=== PATIENT | male | born 1960 | race Caucasian/White ===

== ENCOUNTER → 2019-09-20 | Outpatient (CLI) | payer BC, SELFPAY ==
[2019-09-20 11:36] VITALS: BMI 33.5
== END | disposition home or self-care (01) ==
LOC: COVBMS 15:35 → LABSPEC 10-01 08:20
PROVIDERS: Physician Assistant
DX: Z20.828 Contact with and (suspected) exposure to other viral communicable diseases (principal)
CPT/HCPCS: 87635; U0003

== ENCOUNTER 2021-06-18 17:00 | Outpatient (CLI) | payer BC, SELFPAY ==
--- NOTE | 2021-06-18 17:03 | MRI_ITS ---
We are attempting to reach an attending provider to discuss findings. An addendum with communication details will be sent when the communication is complete. STUDY: MRI BRAIN WITHOUT CONTRAST REASON FOR EXAM: Male, 61 years old. Rule out stroke TECHNIQUE: Standardized multiplanar fat and water weighted pulse sequences were obtained. MRI examination brain obtained with standard protocol including multiplanar multi echo noncontrast imaging. COMPARISON: None. FINDINGS: HEMISPHERES, CEREBELLUM AND BRAINSTEM: 1. The cerebral parenchyma, ventricular system and gyral pattern have normal configuration. 2. Current examination however is remarkable for diffusely increased T2 and FLAIR signal within the LEFT lenticular nucleus, extending into the LEFT insula, mild extension along the anteromedial aspect of the LEFT temporal pole. There is thickening of the cortical surface of the insula, there is mass effect, with mild effacement of the LEFT lateral ventricle, and midline shift to the RIGHT at the level of the foramina of Mcdonald estimated at approximately 5 to 6 mm. 3. There is mild extension of the signal abnormality into the adams radiata with a small cystic area in the midportion of the adams radiata. There also appears to be subtle extension of abnormal signal into the posterior lateral thalamus on the LEFT. 4. No areas of fluid restriction noted on DWI. There is mild ADC restriction corresponding to the infiltrating T2 abnormality. 5. No evidence of hemorrhage. 6. Minimal chronic microvascular deep white matter changes are present. 7. The cerebellum, brainstem, basilar and suprasellar cisterns have normal appearance. No Chiari malformation. PITUITARY: Infundibulum and pituitary have normal configuration. Midline structures appear normal. CSF SPACES: Appropriate for age. No hydrocephalus. Basal cisterns are patent. VESSELS: 1. There are normal flow voids noted in the great vessels at the skull base ORBITS AND PARANASAL SINUSES: 1. Both globes, extraocular muscles, optic nerves and retrobulbar fat appear unremarkable. 2. Polypoid mucosal thickening/mucous retention cyst in the LEFT maxillary antrum. Remaining paranasal sinuses are clear. BONY ELEMENTS: Bony elements of the cranial vault, facial skeleton and skull base have normal appearance. SCALP AND SOFT TISSUES: Normal appearance of the soft tissues of the scalp and the visualized face OTHER: None MRI/Brain without Contrast IMPRESSION: 1. Marked abnormality of the LEFT lenticular nucleus and insular cortex, with extension into the adams radiata, posterior lateral thalamus, and the anteromedial LEFT temporal lobe. There is cortical thickening, diffuse increased fluid signal on T2 and particularly FLAIR imaging without diffusion restriction on DWI examination. Findings are consistent with a infiltrating cellular process, and a primary [employer] neoplasm is a consideration. There is a small cystic area of this lesion in the LEFT adams radiata. Consider follow-up imaging with contrast for further characterization. 2. Mild rightward midline shift of 5 to 6 mm. 3. No evidence of acute territorial infarct or intraparenchymal hemorrhages. 4. Sinus disease. Electronically Signed: Dong Sutherland MD at 18:50 EDT ,
== END 2021-06-18 23:59 | disposition home or self-care (01) ==
PROVIDERS: PCP Family Medicine; Visit Provider Orthopaedic Surgery
DX: I63.9 Cerebral infarction, unspecified (principal)
CPT/HCPCS: 70551

== ENCOUNTER 2021-06-18 19:23 | Emergency (ER) | payer BC, SELFPAY ==
[2021-06-18 19:24] VITALS: BP 135/94; PULSE 104; RESP 18; TEMP 36.5; O2SAT 98; BMI 34.4
[2021-06-18 19:32] VITALS: BMI 34.7
[2021-06-18 19:46] LABS: Bedside Glucose 110 mg/dL (74-106)
--- NOTE | 2021-06-18 20:19 | EDS_ITS ---
HPI History of Present Illness Chief Complaint: Neuro S/Sx Informant: patient and spouse/S.O. Narrative Narrative: Patient was sent down from MRI due to finding of a new intracranial mass. This patient was referred to orthopedics about a week and a half ago. At that time he had some sensory changes of his right upper extremity. MRI of the head was ordered as it was not thought that this was likely due to his previous cervical fusion done about 6 years ago. The MRI showed a finding consistent with infiltrating cellular process and primary PORTABLE TRACKMAN neoplasm is a consideration. There is a rightward shift of 5 to 6 mm. For this reason he was sent down here. By history, patient actually has some symptoms going back almost 3 years. He had some sensory changes and right foot drop for 3 years. However this markedly increased in April. 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 It made him have more difficulty walking. He has to think about his right leg and lifted up to walk. But he has no problem with steps. It seems mostly to be dorsiflexion of the foot that causes him problems. However, his right upper extremity symptoms only started about 3 weeks ago. It started with temperature changes. Now he has proprioception loss. He also has some weakness. He has discoordination. These are more rapidly progressive. He does not have headache nausea vomiting. He does not have fevers or chills. There is not been weight loss. No visual changes. No facial changes or speech changes. Nothing specifically makes his symptoms better or worse. PFSH PFSH Home Medications calcium carbonate 600 mg-vitamin D3 12.5 mcg (500 unit) capsule cap PO 06/01/21 [History Last Taken Unknown] lisinopril 10 mg tablet tablet PO 06/01/21 [History Last Taken Unknown] Allergy/AdvReac Type Severity Reaction Status Date / Time No Known Allergies Allergy Unverified 09/20/19 11:37 Family History Mother Hypertension Grandfather CVA (cerebral vascular accident) Surgical History Hx of fusion of cervical spine Social History Smoking Status: Never smoker alcohol intake: never ROS ROS ED Constitutional Constitutional ED: Denies chills or fever(s) Eyes Eyes: Denies blurry vision, change in vision or diplopia ENT ENT ED: Denies rhinorrhea Cardiovascular Cardiovascular: Denies chest pain or palpitations Respiratory/Chest Respiratory/Chest: Denies dyspnea Gastrointestinal Gastrointestinal: Denies nausea or vomiting Genitourinary Genitourinary ED: Denies dysuria or urinary frequency Musculoskeletal Musculoskeletal: Reports other Details: Patient has had cervical fusion. But he is not having significant neck pain. ; Denies arthralgias, back pain, myalgias or neck pain Integumentary Denies rash Neurologic Neurologic: Reports paresthesias, weakness and other Details: See history of present illness ; Denies headache(s) Psychiatric Psychiatric: Denies depression Endocrine Endocrinology: Denies polydipsia or polyuria Allergic/Immunologic Allergic/Immunologic ED: Denies urticaria EXAM Physical Exam Const Vital Signs: 06/18/21 19:24 06/18/21 20:24 06/18/21 21:17 Temperature 97.7 F L Temperature Source Temporal Pulse Rate 104 H 97 84 Respiratory Rate 18 15 21 H Blood Pressure 135/94 H 146/99 H 133/86 H Blood Pressure Mean 107 114 101 Pulse Ox 98 98 97 Oxygen Delivery Method Room Air Room Air Room Air Positive well nourished and well developed General Appearance ED: well developed and NAD; Negative for cyanotic or diaphoretic HEENT Reports moist mucous membranes HEENT Narrative: No facial droop or weakness noted. Eyes PERRL and EOMs intact bilaterally Neck no lymphadenopathy Neck Narrative: Prior anterior cervical fusion Chest Wall inspection of chest normal Resp normal respiratory effort and clear to auscultation bilaterally Cardio regular rate and regular rhythm GI normal to inspection, nondistended, normoactive bowel sounds and non-tender Palpation: soft Back/Spine no CVA tenderness Extremity normal to inspection General Extremety ED: Negative for edema or tenderness General Extremity: Negative for edema Neuro oriented x3 Neuro Narrative: Patient does have slight foot drop on the right. He is able to walk but he has to pull his leg up significantly high. He has some mild discoordination. But he can walk independently. He can move his right hand but it is also discoordinated. He has decreased sensation throughout the hand but does have some still remaining in the right thumb area. He has functional skills tutor bicep and tricep and shoulder strength but it is reduced from his left. Sensation is very poor diffusely in the right extremity until you get to the area of the shoulder and it starts to come back. Sensorium / Orientation: alert Psych mental status grossly normal Skin no rashes or lesions noted and no wounds MDM MDM MDM Narrative Medical decision making narrative: We did some basic lab work. Really no marked abnormalities in LFTs, electrolytes or CBC. Minimal elevations of chloride and glucose only. I did review the MRI results that show concerning findings for infiltrative process that even could be a neoplasm. With his progression of symptoms rapidly over the last few weeks and a 5 to 6 mm shift I think he does need to be seen acutely. I discussed case with Dr. Hollis on neurosurgery up at [facility] who will accept him in transfer. They are tight on beds but he said they should have something available for him relatively soon. We are waiting for that bed assignment at this time. Lab Data Attestation: I reviewed the patient's lab results. Labs: Laboratory Results - last 24 hr 06/18/21 06/18/21 06/18/21 19:38 20:30 20:30 WBC 8.5 RBC 4.94 Hgb 14.6 Hct 41.6 MCV 84.2 MCH 29.6 MCHC 35.1 RDW Std Deviation 38.5 RDW Coeff of Antonia 12.6 Plt Count 229 MPV 9.7 Immature Gran % (Auto) 0.400 Neut % (Auto) 75.3 H Lymph % (Auto) 16.3 L [place] % (Auto) 6.5 Eos % (Auto) 1.1 Baso % (Auto) 0.4 Absolute Neuts (auto) 6.4 Absolute Lymphs (auto) 1.38 Nucleated RBC % 0 Sodium 137 Potassium 4.9 Chloride 109 H Carbon Dioxide 25.0 Anion Gap 3 L BUN 17 Creatinine 1.20 Estim Creat Clear Calc 65.90 Est GFR (MDRD) Af Amer 79 Est GFR (MDRD) Non-Af 65 BUN/Creatinine Ratio 14.2 Glucose 110 H Calcium 9.2 Total Bilirubin 0.60 AST 26 ALT 26 Alkaline Phosphatase 64 Total Protein 7.1 Albumin 4.0 Globulin 3.1 Albumin/Globulin Ratio 1.3 POC Glucose 110 H Discharge Plan Triage Chief Complaint: Neuro S/Sx ED Provider: El Thomson Dx/Rx/DC Orders Clinical Impression: Intracranial mass, Acute right-sided weakness Prescriptions: No Action lisinopril 10 mg tablet PO RF: 0 calcium carbonate-vitamin D3 [Calcium 600 with Vitamin D3] 600 mg-12.5 mcg (500 unit) capsule PO RF: 0 Primary Care Provider: Raymundo Badillo Referrals: Raymundo Badillo MD [Primary Care Provider] - Disposition Disposition: Acute Care Hospital Discharge Location: [facility]
[2021-06-18 20:24] VITALS: BP 146/99; PULSE 97; RESP 15; O2SAT 98
[2021-06-18 20:43] LABS: Absolute Lymphocyte Count 1.38 X10^3/uL (0.83-4.51); Absolute Neutrophil Count 6.4 X10^3/uL (2.0-7.7); Basophil# 0.03 X10^3/uL; Basophil% 0.4 % (0-1); Eosinophil# 0.09 X10^3/uL; Eosinophils% 1.1 % (0-5); Hematocrit 41.6 % (40-54); Hemoglobin 14.6 g/dL (13.0-16.5); Lymphocyte # 1.38 X10^3/ul (0.83-4.51); Lymphocyte % 16.3 % (19-41); Mean Corp Hgb Conc 35.1 g/dL (32-36); Mean Corpuscular Hgb 29.6 pg (27.0-32.0); Mean Corpuscular Volume 84.2 fL (80-94); Mean Platelet Vol. 9.7 fl (6.2-12.0); Monocyte# 0.55 X10^3/uL; Monocyte% 6.5 % (0-10); NRBC Flagged by Analyzer 0 % (0-5); Neutrophil # 6.41 X10^3/uL (2.7-7.7); Neutrophil % 75.3 % (47-70); Platelet Count 229 K/mm3 (150-450); RBC Distribution Width CV 12.6 % (11.6-14.6); RBC Distribution Width SD 38.5 fl (35.1-43.9); Red Blood Count 4.94 M/mm3 (4.6-6.2); White Blood Count 8.5 K/mm3 (4.4-11.0)
[2021-06-18 21:02] LABS: ALB/GLOB Ratio 1.3 RATIO (0.9-2.4); AST(SGOT) 26 U/L (15-37); Alanine Aminotransfer ALT/SGPT 26 U/L (16-61); Alkaline Phosphatase 64 U/L (45-117); Anion Gap 3 (5-15); BUN 17 mg/dL (7-18); BUN/Creat Ratio 14.2 RATIO (10-20); Calcium,Total 9.2 mg/dL (8.5-10.1); Chloride 109 mmol/L (98-107); EST Glomerular Filtration Rate 65 mL/min (>60); Est Glom Filt Rate - Afr Amer 79 mL/min (>60); Globulin 3.1 g/dL (2.2-4.2); Glucose 110 mg/dL (74-106); Potassium 4.9 mmol/L (3.5-5.1); Protein, Total 7.1 g/dL (6.4-8.2); Sodium Level 137 mmol/L (136-145)
[2021-06-18 21:17] VITALS: BP 133/86; PULSE 84; RESP 21; O2SAT 97
[2021-06-18 22:46] VITALS: BP 137/93; RESP 18; O2SAT 95
[2021-06-18 23:09] VITALS: BP 125/86; PULSE 92; RESP 23; O2SAT 98
[2021-06-19] VITALS (13 sets, daily range): BP systolic 110–167; BP diastolic 73–104; PULSE 69–107; RESP 16–25; O2SAT 93–99
--- NOTE | 2021-06-19 10:10 | CM.ED ---
ER RNCM Note: According to patient insurance [employer], in network tertiary facilities for HLOC transfer are as follows: [facility], [facility], [facility], [facility], [facility], [facility], [facility], . Aditi Huber, RNCM
--- NOTE | 2021-06-19 10:26 | ED.RN ---
CALLED TO CHECK ON A BED ASSIGNMENT AND THEY DON'T HAVE A ETA ON A BED
--- NOTE | 2021-06-19 10:58 | ED.RN ---
THIS NURSE CONTACT [facility] FOR TRANSFER PER FAMILY REQUEST
[2021-06-19] MEDS: Lisinopril 10 MG Tablet PO (11:11)
[2021-06-19] MEDS: dexAMETHasone 4 MG Tablet PO (13:12)
--- NOTE | 2021-06-19 14:16 | ED.RN ---
CALLED PHYSICIANS FOR A RIDE THIS PATIENT, THE ETA IS 3 HOURS I ASKED THEM TO OUT SOURCE SINCE SINCE HE IS A TERRY SHIFT.
--- NOTE | 2021-06-19 14:22 | ED.RN ---
Patient gave verbal consent to be transferred to [facility]. Patient currently calling his to notify her of transfer.
--- NOTE | 2021-06-19 16:01 | ED.RN ---
This RN has called [facility] ED transfer center for report. Stated they do not need report. Everything has been sent to triage nurse and she has no further questions at this time.
--- NOTE | 2021-06-19 17:36 | ED.RN ---
CALLED PHYSICIANS AND THEY HAVE CHANGED THE ETA AGAIN TO ANOTHER 2-3 HOURS FOR THIS PATIENT. THEY DONT HAVE A MEDIC CURRENTLY. I EXPLAINED I HAVE MULTIPLE CRITICAL PEOPLE
--- NOTE | 2021-06-19 17:44 | ED.RN ---
CALLED [facility] AND THEY WASNT ABLE TO HELP US WITH THIS PERSON.
== END 2021-06-19 19:30 | disposition short-term general hospital (02) ==
PROVIDERS: Emergency Provider Emergency Medicine; PCP Family Medicine; Visit Provider Emergency Medicine
DX: R22.0 Localized swelling, mass and lump, head (principal); R53.1 Weakness; Z79.899 Other long term (current) drug therapy
CPT/HCPCS: 80053; 82962; 85025; 99283; A4216

== ENCOUNTER 2021-08-19 10:59 | Outpatient (RCR) | payer BC, SELFPAY ==
[2021-08-19 11:14] LABS: Absolute Lymphocyte Count 0.64 X10^3/uL (0.83-4.51); Absolute Neutrophil Count 11.3 X10^3/uL (2.0-7.7); Basophil# 0.04 X10^3/uL; Basophil% 0.3 % (0-1); Eosinophil# 0.08 X10^3/uL; Eosinophils% 0.6 % (0-5); Hematocrit 44.9 % (40-54); Hemoglobin 15.2 g/dL (13.0-16.5); Lymphocyte # 0.64 X10^3/ul (0.83-4.51); Mean Corp Hgb Conc 33.9 g/dL (32-36); Mean Corpuscular Volume 88.7 fL (80-94); Mean Platelet Vol. 9.2 fl (6.2-12.0); Monocyte# 0.52 X10^3/uL; Monocyte% 4.1 % (0-10); NRBC Flagged by Analyzer 0 % (0-5); Neutrophil # 11.28 X10^3/uL (2.7-7.7); Neutrophil % 88.8 % (47-70); Platelet Count 202 K/mm3 (150-450); RBC Distribution Width CV 14.2 % (11.6-14.6); RBC Distribution Width SD 45.9 fl (35.1-43.9); Red Blood Count 5.06 M/mm3 (4.6-6.2); White Blood Count 12.7 K/mm3 (4.4-11.0)
[2021-08-19 11:30] LABS: AST(SGOT) 20 U/L (15-37); Alanine Aminotransfer ALT/SGPT 34 U/L (16-61); Albumin, Serum 3.5 g/dL (3.2-5.0); Alkaline Phosphatase 53 U/L (45-117); Anion Gap 8 (5-15); BUN 20 mg/dL (7-18); Calcium,Total 9.5 mg/dL (8.5-10.1); Chloride 104 mmol/L (98-107); Creatinine, Serum 1.11 mg/dL (0.70-1.30); EST Glomerular Filtration Rate 71 mL/min (>60); Est Glom Filt Rate - Afr Amer 86 mL/min (>60); Estimated Creatinine Clearance 71.25 ml/min; Globulin 3.5 g/dL (2.2-4.2); Glucose 163 mg/dL (74-106); Potassium 3.8 mmol/L (3.5-5.1); Sodium Level 137 mmol/L (136-145)
== END 2021-09-01 23:59 ==
LOC: PAVLAB 10:59
PROVIDERS: Student in an Organized Health Care Education/Training Program; PCP Family Medicine
DX: C71.9 Malignant neoplasm of brain, unspecified (principal)
CPT/HCPCS: 36415; 80053; 85025

== ENCOUNTER 2021-11-06 14:00 | Outpatient (RCR) | payer BC, SELFPAY ==
--- NOTE | 2021-06-26 16:55 | HP.SP.AD_ITS ---
History - History Date of Eval: 06/26/21 Medical Diagnosis (from RX): Brain Mass (G93.89); [facility] with Post- Operative Status (Z98.890) Date of Onset of Diagnosis: 06/18/21 Previous speech therapy: No Other Relevant Medical History/Diagnoses/Surgery: EVE ADAN is a 61-year-old male who presents to [facility] in [place] on 06/26/2021, s/p brain biopsy at the [facility] in [place]. Pt recently dx with a brain mass at [facility] following a visit d/t right arm/leg weakness and minimal feeling. Pt?s hx remarkable for cervical fusion in March 2017 ([facility], [place] of [place]). Pt presenting with stroke-like symptoms on 06/01/2021, which warranted an MRI on 06/18/21. MRI was remarkable for a brain mass located in the LEFT lenticular nucleus extending into LEFT insula. Pt transferred to the [facility] for brain biopsy on 06/23/21. He did work at an [employer], so he lifts a lot of heavy items. 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 Pt and Pt's endorse intermittent slurred speech with unclear determination if it is phoneme specific. Will assess further. Objective Dysarthira/Motor - Speech Intelligibility Phonemes: Mild Single Words: Mild Phrases: Mild Sentences: Mild Paragraphs: Mild Conversation: Mild - Volume Volume: Mild - Awareness/Strategy Use Aware of motor speech impairment, unable to use strategies to improve intelligibility: Yes - Comments Diadochokinetic Rate -: Pt produced /puhpuhpuh/, /tuhtuhtuh/, and /kuhkuhkuh/ w/slow rate and mild incoordination of /k/ phoneme with intermittent evidence of nasal emission. Pt completed AMR w/ significantly slow rate, poor coordination, intermittent nasal emission. Other Impressions - Comments Quick Aphasia Battery -: Quick Aphasia Battery (QAB) completed to assess mixed receptive and expressive aphasia. The test assesses Pt's skills in verbal expression, repetition, auditory comprehension, and fluency. The severity rating for the QAB is as follows: 0.00-4.99 Severe; 5.00-7.49 Moderate; 7.50-8.89 Mild; 8.90-10.00 WNL. Results for Eve are as follows: Word comprehension, 10.00; Sentence comprehension, 10.00; Word finding, 8.00; Grammatical construction, 6.25; Speech motor programming, 10.00; Repetition, 9.58; Reading, 9.58; QAB overall = 8.66 --------- The pt presents with mild expressive aphasia characterized by functional deficits in word finding and grammatical construction at the conversation level, conversational fluency. Pt additionally presents with mild ataxic dysarthria, which negatively impacts his ability to utilize articulatory musculature to accurately produce speech sounds in connected speech. During conversation, Pt typically utilizing vague words, shorter MLU, abandoned utterances, and word-finding pauses. Pt effective in showing some independent use of aphasia-word finding strategies. Plan - Plan Plan: Will recommend Pt for weekly outpatient speech therapy intervention address mild expressive aphasia and ataxic dysarthria. Pt would benefit from oral motor exercises, verbal and visual modeling, verbal/visual and tactile cuing, repeated practice, speech intelligibility strategies, circumlocution training, and immediate feedback to improve articulation and coordination. Without skilled intervention Pt is at risk for difficulty communicating basic, medical, emergent, social wants & needs, and interacting with family/friends at home, during social interactions, and at doctor's appointments. - Recommendations Treatment Warranted: Yes - Frequency Frequency: 1x/Week Duration: TBD - Prognosis Prognosis: Good - Goals that are Established: Determination:: Goals will be added/modified as deemed necessary and appropriate. Therapy will be discontinued when results of re-evaluation indicate therapy is no longer needed or lack of progress has been documented. - Goal #1-5 Goal #1: The pt will demonstrate and utilize speech intelligibility techniques (increased loudness, reduced rate of speech, exaggerated articulation, increased jaw ROM) 90% of the time during conversational speech independently across 3 measured sessions to facilitate increased expressive communication abilities in the home and social environments. Goal #2: Pt will complete basic to mod complex confrontation, convergent, and divergent naming tasks with 90% acc independently across 3 measured opportunities to improve word retrieval. Goal #3: The Pt will demonstrate use of aphasia-wording finding strategies at least 90% of the time during known and unknown topics of conversational speech independently across 3 measured opportunities to facilitate increased expressive communication abilities in the home and social environments. Education - Patient has Indicated that the Following Identified Educational Needs: None The Patient has indicated that they have no educational or learning abilities that may effect their care.: Yes - Patient Instruction Patient Education: Diagnosis, Treatment Plan, Goals, Home Exercise Program Person Taught: Patient, Significant Other Teaching Method: Discussion, Demonstration, Handout Response to teaching: Return demonstration, Verbalize understanding
--- NOTE | 2021-06-26 17:07 | HP.SP.AD_ITS ---
History - History Date of Eval: 06/26/21 Medical Diagnosis (from RX): Brain Mass (G93.89); Robson Hole Surgery with Post- Operative Status (Z98.890) Date of Onset of Diagnosis: 06/18/21 Previous speech therapy: No Other Relevant Medical History/Diagnoses/Surgery: EVE ADAN is a 61-year-old male who presents to [facility] in [place] on 06/26/2021, s/p brain biopsy at the [facility] in [place]. Pt recently dx with a brain mass at [facility] following a visit d/t right arm/leg weakness and minimal feeling. Pt?s hx remarkable for cervical fusion in March 2017 ([facility], [place]). Pt presenting with stroke-like symptoms on 06/01/2021, which warranted an MRI on 06/18/21. MRI was remarkable for a brain mass located in the LEFT lenticular nucleus extending into LEFT insula. Pt transferred to the [facility] for brain biopsy on 06/23/21. He did work at an [employer], so he lifts a lot of heavy items. 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 Provided direct education to monitor sensation as loss of sensation may lead to pocketing of food on the right side. Pt denies difficulty with swallowing at this time. Asked him to monitor and we will address in therapy should difficulties arise. - Respiratory Status Respiratory Status: Room Air Subjective Dysarthria/Motor - Subjective Subjective: Pt's overall speech characteristics along with site of brain mass are consistent with ataxic dysarthria. Pt and Pt's endorse intermittent slurred speech with unclear determination if it is phoneme specific. Will assess further. Objective Dysarthira/Motor - Speech Intelligibility Phonemes: Mild Single Words: Mild Phrases: Mild Sentences: Mild Paragraphs: Mild Conversation: Mild - Volume Volume: Mild - Awareness/Strategy Use Aware of motor speech impairment, unable to use strategies to improve intelligibility: Yes - Comments Diadochokinetic Rate -: Pt produced /puhpuhpuh/, /tuhtuhtuh/, and /kuhkuhkuh/ w/slow rate and mild incoordination of /k/ phoneme with intermittent evidence of nasal emission. Pt completed AMR w/ significantly slow rate, poor coordination, intermittent nasal emission. Other Impressions - Comments Quick Aphasia Battery -: Quick Aphasia Battery (QAB) completed to assess mixed receptive and expressive aphasia. The test assesses Pt's skills in verbal expression, repetition, auditory comprehension, and fluency. The severity rating for the QAB is as follows: 0.00-4.99 Severe; 5.00-7.49 Moderate; 7.50-8.89 Mild; 8.90-10.00 WNL. Results for Eve are as follows: Word comprehension, 10.00; Sentence comprehension, 10.00; Word finding, 8.00; Grammatical construction, 6.25; Speech motor programming, 10.00; Repetition, 9.58; Reading, 9.58; QAB overall = 8.66 --------- The pt presents with mild expressive aphasia characterized by functional deficits in word finding and grammatical construction at the conversation level, conversational fluency. Pt additionally presents with mild ataxic dysarthria, which negatively impacts his ability to utilize articulatory musculature to accurately produce speech sounds in connected speech. During conversation, Pt typically utilizing vague words, shorter MLU, abandoned utterances, and word-finding pauses. Pt effective in showing some independent use of aphasia-word finding strategies. Naming -: Pt completed convergent naming task via naming category name following 3 verbally presented words with 80% acc independently and benefited from min verbal cue via carrier phrase to improve acc to 100%. Pt completed concrete divergent naming task via naming 8 animals in a 60 second time frame with Pt making comments like oh all the zoo animals and all the animals. Pt completed abstract divergent naming task with initial letter restriction (M) via naming 2 items within a 60 second time frame. WNL for a combined concrete/abstract divergent naming task would be a total of 20-25+ items total. Pt identifying a total of 10. Plan - Plan Plan: Will recommend Pt for weekly outpatient speech therapy intervention address mild expressive aphasia and ataxic dysarthria. Pt would benefit from oral motor exercises, verbal and visual modeling, verbal/visual and tactile cuing, repeated practice, speech intelligibility strategies, circumlocution training, and immediate feedback to improve articulation and coordination. Without skilled intervention Pt is at risk for difficulty communicating basic, medical, emergent, social wants & needs, and interacting with family/friends at home, during social interactions, and at doctor's appointments. - Recommendations Treatment Warranted: Yes - Frequency Frequency: 1x/Week Duration: TBD - Prognosis Prognosis: Good - Goals that are Established: Determination:: Goals will be added/modified as deemed necessary and appropriate. Therapy will be discontinued when results of re-evaluation indicate therapy is no longer needed or lack of progress has been documented. - Goal #1-5 Goal #1: The pt will demonstrate and utilize speech intelligibility techniques (increased loudness, reduced rate of speech, exaggerated articulation, increased jaw ROM) 90% of the time during conversational speech independently across 3 measured sessions to facilitate increased expressive communication abilities in the home and social environments. Goal #2: Pt will complete basic to mod complex confrontation, convergent, and divergent naming tasks with 90% acc independently across 3 measured opportunities to improve word retrieval. Goal #3: The Pt will demonstrate use of aphasia-wording finding strategies at least 90% of the time during known and unknown topics of conversational speech independently across 3 measured opportunities to facilitate increased expressive communication abilities in the home and social environments. Education - Patient has Indicated that the Following Identified Educational Needs: None The Patient has indicated that they have no educational or learning abilities that may effect their care.: Yes - Patient Instruction Patient Education: Diagnosis, Treatment Plan, Goals, Home Exercise Program Other Education: Provided direct education re: aphasia word finding strategies as well as examples and a handout to Pt and Pt's . Also provided Pt with category name examples for Pt to practice divergent/convergent naming tasks at home. Person Taught: Patient, Significant Other Teaching Method: Discussion, Demonstration, Handout Response to teaching: Return demonstration, Verbalize understanding
--- NOTE | 2021-07-07 07:45 | HP.OTEVAL_ITS ---
Patient's Visit Information EVE ADAN is a 61 year old M, referred to Occupational Therapy by RADHA CURRY, with a diagnosis of Brain Mass; Tita Hole Surgery with Post-Operative Status. Date of Evaluation: 07/06/21 Occupational Therapist: Edilia Heard, ROSEANNER/Sandra, CHT - Subjective Pt. is a 61 year old male who had a biopsy of brain lesion by intracranial tita hole on 06-22-21. His Rowena brought pt. to evaluation. Pt. in wc and has his cane. Pt. stating he does not have pain at this time. Per pt. report he developed foot drop approximately 3 years ago. 2 months ago (~early May) he developed RUE weakness. Pt. is having difficulty with self-care and IADL tasks. Per pt. has an infection from biopsy. He has inoperable brain tumor. He will be doing radiation for 6 weeks, and 7 days of chemo. He has an infection and is going to [place] on for 07-09-21 for tx. - ADLs Dressing: Overhead shirt, Coat Comments: verbalized understanding of bill dressing tech. Comments: requires Min/Mod A Comments: per cognitive deficits does not allow pt. in kitchen without supervisi Comments: pt. using L hand for daily tasks. Comments: Pt. currently completes sponge bathing as the bathroom on 1st floor has commode & sink. The bathroom with the shower is upstairs and pt. is unable to complete stairs at this time. Pt. states that in 2 months their rental contract is up and they could move. understands that a handicapped accessible home would be beneficial to pt. ADL status. is retired and able to assist with pt. ADL's and IADL's. is retired. 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 - ROM Shoulder: L WFL, R trace shoulder elevation Elbow: L WFL, R 85* while supported Forearm: L WFL, R active sup to 65*,pronation with gravity Wrist: L WFL, R 30* flexion, ulnar deviation 30*, radial deviation 2* CMC: L WFL R 8 MP: L WFL R 10 IP: L WFL, R 35 Opposition: L WFL, R thumb to 3rd digit. MP: R 1- 35*, 2- 40*, 3- 25*, 4-18* PIP: R 1-60*,2-73*, 3-76*, 4-75* ROM Comments: can make R fist with effort - Strength Shoulder: L 31.7 R 18 Elbow: L25.6 R 14.9 Dry Sand Molder: L-75# R 5# Lateral Pinch: L-25# R 5# Tripod Pinch: L-20# R-NT Tip-to-Tip Pinch: L-15# R-5# Strength Comments: used FIT mini for muscle testing. Per pt. report he started on steroids on 07-03-21, feels like there is a bit more strength in R hand R Leg - Edema Other: minimal edema in R hand compared to L hand - Sensation Thumb: L 3.84 Index: L3.61 Middle: L-3.22 Ring: L-2.83 Little: L2.83 Stereognosis: Abnormal - Right, Normal - Left Kinesthesia: Abnormal - Right, Normal - Left Proprioception: Abnormal - Right, Normal - Left Sensation Comments: Used [place]-Leobardo monofilament assessment. Pt. was unable for feel sensation at 3.84 on R hand/fingers. At risk for temperature injuries. - Cognitive Skills Cognitive Comments: per report pt. has difficulty with word finding - Attention Attention: Normal - Transfers Transfers: sit to stand using L hand at CGA. stand to sit, pt. plops, even with vc's to reach back prior to sitting. - Upper Limb Functional Index ULFI Score: 20.5 - Quick DASH-Disab of Arm,Shoulder& Hand Quick DASH Score: 81.8175 - Goals Goal:: Pt. will improve precision aircraft structure assembler strength by 15# (from 5# to 20#) from for increasing independence with opening containers for meals by dc. Goal:: Pt. will increase RUE AROM from trace to 15 degree shoulder flexion to increase indep with UB dressing by dc. Goal:: Pt. to don pullover shirt at Mod I level by dc. Goal:: Pt. to verbalize awareness of sensation at level 3.22 on [place]-Leobardo monofilament assessment on R hand by dc. pt will demo understanding to utilize visual compensation around hot/cold or sharp objects by end of 3 rd session. Goal:: pt will demo understanding of using adaptive dressing pancho. to decrease need of assist by family ie, adaptive clothing, elastic pants etc. Goal:: Will provide family ed. on ergonomics for dressing, bathing, transfer to avoid injury to self or pt by d/c - Rehabilitation General Assessment: Pt?s hx: cervical fusion in March 2017 ([facility], out of [place]). Pt presenting with stroke-like symptoms on 06/01/2021, which warranted an MRI on 06/18/21. MRI was positive for a brain mass located in the LEFT lenticular nucleus extending into LEFT insula. Pt transferred to the [facility] for [facility] biopsy on 06/23/21. He has decreased RUE AROM, strength, and sensation. He requires assistance from for ADL's and dependent for IADL tasks. Pt. would benefit from skilled OT services 1-2x week for 6 weeks to improve RUE function for independence with ADL's. Therapy se beatty was directly supervised and doc. reviewed and approved by Edilia Heard OTR/L,CHT Rehabilitation Potential: Good - Anticipated Interventions A/AAROM/PROM, Strengthening, Fine Motor Coord/Luis, Neuro Reeducation, Sensory Stimulation, ADL Training, Caregiver Training, Home Program - Visit Plan Frequency: 1-2x /Week Duration: 6 Weeks TEXT: Thank you for the opportunity to evaluate your patient. For Medicare and Medicare HMO plans, please review the plan of care and approve it. It will need to be FAXED BACK to us at [phone] for Medicare purposes. Please let me know if there are questions or concerns regarding this plan of care. Physician Signature: Date:
--- NOTE | 2021-07-14 08:57 | HP.PTEVAL ---
Patient's Visit Information EVE ADAN is a 61 year old M referred to Physical Therapy by RADHA CURRY with a diagnosis of L sided brain mass. Date of Evaluation: 07/02/21 Physical Therapist: Wilmar Guillermo DPT - Visit Plan Frequency: 2-3x /Week Duration: 6 Weeks Plan: Start with general safety with mobility and walking. Use of AD bill vs quad cane, vs SPC. Work LE strengthening. Balance exercises. - Subjective Pt. is here today for his initial evaluation with diagnosis L sided brain mass. Pt. reports ~ 1 month ago he started having symptoms of loss of use of R foot then his R arm. He was treated initially with a pinched nerve, but then as things progressed he had a further work up. He had a biopsy while he was a the hospital, but is awaiting results. He is to follow up with them later this week. He reports minimal use of RUE, a little better in his R leg, but limited. He denies pain, but is just limited with use. 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 He has been off since his symptoms started. He is able to walk with a bill walker or cane at home. He is hopeful to increase his balance and strength in order to get back to working. - Objective POSTURE: Pt. has slight L lateral lean in stance. R arm dependent at side. Increased B anterior shoulders. PALPATION: No pain with palpation of any extremities. NEURO: normal DTR of L side. absent on R side both UE and LEs. ROM: Normal ROM of BLEs and B UEs. MMT: LLE: 5/5 throughout. RLE: ankle: DF 2-/5, PF 2-/5, knee: ext 3/5, flexion 4/5; hip: flexion 3/5, abd 3-/5, ext 3/5. GAIT: Pt. was able to ambulate without AD, but has exaggerated R hip flexion to make up for loss of DF, decreased L step length with increased lateral sway. Flexed posture throughout. STAIRS: Pt. able to negotiate 1 step with 1 HR without LOB. with Norma. - Balance/Special Test Scores Lower Extremity Functional Score: 18 TUG Test Time Seconds: 41 30 Second Chair Rise Test Seconds: 4 - Goals Goal 1:: LTG: Pt. to be I with HEP for BLE strengthening. Goal Time Frame: 4-6 Weeks Goal 2:: STG: Pt. to complete sit to stand and SPT CARROL with least restrictive device, SPC vs quad cane Goal Time Frame: 2 Weeks Goal 3:: LTG: Pt. to ambulate 150' with least restrictive device CARROL allowing for increased safety in home. Goal Time Frame: 4-6 Weeks Goal 4:: LTG: Pt. to complete 30 sec sit to stand rep test with 8 reps indicating increased functional strength. Goal Time Frame: 4-6 Weeks Goal 5:: LTG: Pt. to complete TUG with score of less than 30seconds indicating increased functional stability. Goal Time Frame: 4-6 Weeks - Rehabilitation Potential Physical Therapy Diagnosis: Pt. has signs and symptoms consistent with L sided brain mass with subsequent R sided weakness. His weakness is effecting all of his mobility in home and in community. He is using WC for longer distances and furniture walking in home. He would benefit from PT to work on general safety with mobility and maintaining current strength. He is awaiting results form brain biopsy which may change POC. Rehabilitation Potential: Fair - Anticipated Interventions Patient/Client Instruction: Educate patient on: Condition, Plan of Care, Risk Factors, Benefits of Fitness Program For the Purpose of:: To facilitate caregiver knowledge, To improve self management, To prevent re-injury, To improve ability to perform tasks related to life management Therapeutic Exercise to Include: Strength training, Power training, Balance training, Coordination, Flexibilty training, Gait and locomotor training, Dynamic Lumbar Stabilization For the Purpose of:: To increase ROM, To improve nutrient delivery to tissue, To increase oxygenation perfusion, To improve muscle performance and motor function, To improve ability to perform ADL's, To increase tolerance to activity/condition/position, To decrease level of supervision to perform tasks, To improve ability of physical actions for home/community/work/leisure, To improve gait and locomotor functions, To improve health of tissue, To increase flexibility/ROM Thank you for the opportunity to evaluate your patient. For Medicare and Medicare HMO plans, please review the plan of care and approve it. It will need to be FAXED BACK to us at [phone] for Medicare purposes. For Medicare only, by signing this I certify the plan of care. Please let me know if there are questions or concerns regarding this plan of care. Physician Signature: Date:
--- NOTE | 2021-08-12 07:19 | HP.PTREVAL ---
RADHA CURRY, It has been my pleasure to treat EVE ADAN over the last 8 visits for L sided brain mass. Please see the progress note below for an update on the physical therapy plan of care! Subjective: Pt. in WC this date in waiting room. Pt. reports overall doing okay. He reports having increased difficulty with raising L foot/ankle with walking. He did miss his appointment for his fitting for her AFO. Attempting to reschedule. Pt. reports no no pain today. He did not have on R arm sling this date. Objective/Function: Sit to standing: Pt. is able to complete with SBA with quad cane. He was able to rise of WC and complete standing tx without issues. Increased VCing for R foot placement. Controlled descend. Bed mobility: I with sitting to supine, min A with supine to sitting. GAIT: Pt. ambulated 1x150' with quad cane with good stability. No signs of LOB, but did require increased time to complete. Pt. had difficulty with hip flexion and DF on R side resulting increase L wt. shift to off load. He had overall decreased step length bilaterally. He did well with directional changes. Overall decreased tempo. he did better with use of theraband to aide with DF. ROM: PT. has fine PROM throughout BLEs. MMT: LLE 5/5 throughout. RLE: ankle 4+/5 throughout except 2+/5 DF and EVR. Knee: flexion 4/5, extension 4/5; hip: flexion 2+/5, abd 3/5, ext 4+/5. Plan Plan: Cont. with focus on functional mobility ie walking, transfers, add in some bed mobility strategies. I will call airline mechanic to reschedule miss appointment for AFO fitting. Balance/Gait/Functional tests - Balance/Special Test Scores Lower Extremity Functional Score: 18 TUG Test Time Seconds: 41 Tug Test: >30sec.=impaired mobility 30 Second Chair Rise Test Seconds: 6 Goals Goal 1:: LTG: Pt. to be I with HEP for BLE strengthening. Goal Time Frame: 4-6 Weeks Goal Progress: Progressing Goal 2:: STG: Pt. to complete sit to stand and SPT CARROL with least restrictive device, SPC vs quad cane Goal Time Frame: 2 Weeks Goal Progress: Progressing Goal 3:: LTG: Pt. to ambulate 150' with least restrictive device CARROL allowing for increased safety in home. Goal Time Frame: 4-6 Weeks Goal Progress: Progressing Goal 4:: LTG: Pt. to complete 30 sec sit to stand rep test with 8 reps indicating increased functional strength. Goal Time Frame: 4-6 Weeks Goal Progress: Progressing Goal 5:: LTG: Pt. to complete TUG with score of less than 30seconds indicating increased functional stability. Goal Time Frame: 4-6 Weeks Goal Progress: Progressing Anticipated Interventions Patient/Client Instruction: Educate patient on: Condition, Plan of Care, Risk Factors, Benefits of Fitness Program For the Purpose of:: To facilitate caregiver knowledge, To improve self management, To prevent re-injury, To improve ability to perform tasks related to life management Therapeutic Exercise to Include: Strength training, Power training, Balance training, Coordination, Flexibilty training, Gait and locomotor training, Dynamic Lumbar Stabilization For the Purpose of:: To increase ROM, To improve nutrient delivery to tissue, To increase oxygenation perfusion, To improve muscle performance and motor function, To improve ability to perform ADL's, To increase tolerance to activity/condition/position, To decrease level of supervision to perform tasks, To improve ability of physical actions for home/community/work/leisure, To improve gait and locomotor functions, To improve health of tissue, To increase flexibility/ROM Please do not hesitate to contact me at [phone] by phone or if you have questions or concerns regarding this new plan of care! Sincerely, Wilmar Guillermo DPT
[2021-08-26 11:08] LABS: Absolute Lymphocyte Count 1.67 X10^3/uL (0.83-4.51); Absolute Neutrophil Count 4.9 X10^3/uL (2.0-7.7); Basophil# 0.08 X10^3/uL; Basophil% 1.1 % (0-1); Eosinophil# 0.13 X10^3/uL; Eosinophils% 1.7 % (0-5); Hematocrit 43.8 % (40-54); Hemoglobin 14.8 g/dL (13.0-16.5); Lymphocyte # 1.67 X10^3/ul (0.83-4.51); Lymphocyte % 22.2 % (19-41); Mean Corp Hgb Conc 33.8 g/dL (32-36); Mean Corpuscular Hgb 29.7 pg (27.0-32.0); Mean Corpuscular Volume 87.8 fL (80-94); Mean Platelet Vol. 8.5 fl (6.2-12.0); Monocyte% 6.6 % (0-10); NRBC Flagged by Analyzer 0 % (0-5); Neutrophil % 65.1 % (47-70); Platelet Count 248 K/mm3 (150-450); RBC Distribution Width CV 14.4 % (11.6-14.6); RBC Distribution Width SD 46.2 fl (35.1-43.9); Red Blood Count 4.99 M/mm3 (4.6-6.2); White Blood Count 7.5 K/mm3 (4.4-11.0)
[2021-08-26 11:22] LABS: ALB/GLOB Ratio 1.1 RATIO (0.9-2.4); AST(SGOT) 17 U/L (15-37); Alanine Aminotransfer ALT/SGPT 44 U/L (16-61); Albumin, Serum 3.6 g/dL (3.2-5.0); Alkaline Phosphatase 49 U/L (45-117); Anion Gap 7 (5-15); BUN 21 mg/dL (7-18); BUN/Creat Ratio 20.2 RATIO (10-20); Calcium,Total 9.3 mg/dL (8.5-10.1); Chloride 104 mmol/L (98-107); Creatinine, Serum 1.04 mg/dL (0.70-1.30); EST Glomerular Filtration Rate 77 mL/min (>60); Est Glom Filt Rate - Afr Amer 93 mL/min (>60); Globulin 3.4 g/dL (2.2-4.2); Glucose 113 mg/dL (74-106); Potassium 3.4 mmol/L (3.5-5.1); Sodium Level 139 mmol/L (136-145)
[2021-08-26 19:03] LABS: Xtra Tube EP Lab EXTRA TUBE
--- NOTE | 2021-09-17 07:16 | HP.PTREVAL ---
RADHA CURRY, It has been my pleasure to treat EVE ADAN over the last 13 visits for L sided brain mass. Please see the progress note below for an update on the physical therapy plan of care! Subjective: Pt. reports overall improving. Pt. reports no pain, no HAs. Pt. is walking. Spouse had questions about pool therapy. Jose Cruz reports overall that his ankle is moving better and he is trying to use his R UE more, mostly with bending his elbow more throughout the day. He has been walking more at home as well. Objective/Function: TU.3sec with quad cane. MMT: Pt. has improved R ankle DF strength 4-/5, but fatigues rapidly. R knee: ext 4-/5, flexion 4-/5; hip: flexion 4-/5, abd 4-/5, ext 4/5. LLE: 5/5 throughout. 30sec sit to stand test: 4 with use of LUE. GAIT: Pt. is able to ambulate 75-100' with CGA/SBA. He is very methodical about his gait pattern with focus on increasing hip flexion and ankle DF for proper foot clearance. Pt. demonstrate improved pattern this date, but continues to take a lot of focus and his pattern degrades as he walk and fatigues. steps: 1 HR 6 steps, step to pattern, very methodical in nature, but able to complete. Plan Plan: Cont. with LE strengthening, add in PNF patterns to assist with initiation of ankle and knee mobility/strength. Cont. to provide gait instruction and improve initiation and reciprocal movement of RLE. We will do 1 visit in the pool to work on balance and gait progression along with RLE strengthening. If this provides better benefit we will add to POC at x1 land and x1 pool per week. Balance/Gait/Functional tests - Balance/Special Test Scores Lower Extremity Functional Score: 18 TUG Test Time Seconds: 41 Tug Test: >30sec.=impaired mobility 30 Second Chair Rise Test Seconds: 6 Goals Goal 1:: LTG: Pt. to be I with HEP for BLE strengthening. Goal Time Frame: 4-6 Weeks Goal Progress: Progressing Goal 2:: STG: Pt. to complete sit to stand and SPT CARROL with least restrictive device, SPC vs quad cane Goal Time Frame: 2 Weeks Goal Progress: Progressing Goal 3:: LTG: Pt. to ambulate 150' with least restrictive device CARROL allowing for increased safety in home. Goal Time Frame: 4-6 Weeks Goal Progress: Progressing Goal 4:: LTG: Pt. to complete 30 sec sit to stand rep test with 8 reps indicating increased functional strength. Goal Time Frame: 4-6 Weeks Goal Progress: Progressing Goal 5:: LTG: Pt. to complete TUG with score of less than 30seconds indicating increased functional stability. Goal Time Frame: 4-6 Weeks Goal Progress: Progressing Anticipated Interventions Patient/Client Instruction: Educate patient on: Condition, Plan of Care, Risk Factors, Benefits of Fitness Program For the Purpose of:: To facilitate caregiver knowledge, To improve self management, To prevent re-injury, To improve ability to perform tasks related to life management Therapeutic Exercise to Include: Strength training, Power training, Balance training, Coordination, Flexibilty training, Gait and locomotor training, Dynamic Lumbar Stabilization For the Purpose of:: To increase ROM, To improve nutrient delivery to tissue, To increase oxygenation perfusion, To improve muscle performance and motor function, To improve ability to perform ADL's, To increase tolerance to activity/condition/position, To decrease level of supervision to perform tasks, To improve ability of physical actions for home/community/work/leisure, To improve gait and locomotor functions, To improve health of tissue, To increase flexibility/ROM Please do not hesitate to contact me at [phone] by phone or if you have questions or concerns regarding this new plan of care! Sincerely, Wilmar Guillermo DPT
--- NOTE | 2021-10-01 15:10 | HP.PTREVAL ---
RADHA CURRY, It has been my pleasure to treat EVE ADAN over the last 16 visits for L sided brain mass. Please see the progress note below for an update on the physical therapy plan of care! Subjective: Pt. reports doing okay. He was having increased difficulty with expressive aphasia today. I did talk to spouse and reports he started taking a different medication and he did have a new MRI showing a new lesion, but other was doing better/stable. Objective/Function: MMT: LLE: ankle: DF 50.7#, knee: ext 36.8#, flexion 28.1#; supine: hip: flexion 29.2#, 28.8#, abd 29.7#. RLE: ankle: DF 1.3#, Knee: 8.1# peak force, flexion 7.2#; supine: hip: flexion 2-/5, abd 10#, add 15.9#. Core strength- poor+. 30sec sit to stand rep test: 7 reps with use of L UE on chair, patient uses mostly LLE to push up with. txs: Pt. is able to complete stand pivot transfers with quad cane with SBA. VCing to advance RLE (he does not want to use AFO at this point, I want my leg to get stronger). TU:08 minutes. Pt. had increased difficulty advancing his R leg today. He did do more with an alternate appointment previously this date. gait: Pt. was able to ambulate 35' today with quad cane. He had decreased step length bilaterally. He had increased difficulty with advance RLE today as well. He reports fatigue as limiting factor as well. I talked with spouse who reports he has stopped taking his dex and is taking alternate medication which she believes has added this his difficulty. She still sees more control and functional ability the days after PT. She would like to continue. He did have another MRI which she reports showed another lesion. Plan Plan: POC extended x3 per week for 4 weeks. Cont. to focus on R ankle DF, PNF patterns, transfers, RLE strength and motor control. Also progress gait with most appropriate AD (quad cane vs hemiwalker). Balance/Gait/Functional tests - Balance/Special Test Scores Lower Extremity Functional Score: 18 TUG Test Time Seconds: 41 Tug Test: >30sec.=impaired mobility 30 Second Chair Rise Test Seconds: 6 Goals Goal 1:: LTG: Pt. to be I with HEP for BLE strengthening. Goal Time Frame: 4-6 Weeks Goal Progress: Progressing Goal 2:: STG: Pt. to complete sit to stand and SPT CARROL with least restrictive device, SPC vs quad cane Goal Time Frame: 2 Weeks Goal Progress: Progressing Goal 3:: LTG: Pt. to ambulate 150' with least restrictive device CARROL allowing for increased safety in home. Goal Time Frame: 4-6 Weeks Goal Progress: Progressing Goal 4:: LTG: Pt. to complete 30 sec sit to stand rep test with 8 reps indicating increased functional strength. Goal Time Frame: 4-6 Weeks Goal Progress: Progressing Goal 5:: LTG: Pt. to complete TUG with score of less than 30seconds indicating increased functional stability. Goal Time Frame: 4-6 Weeks Goal Progress: Progressing Anticipated Interventions Patient/Client Instruction: Educate patient on: Condition, Plan of Care, Risk Factors, Benefits of Fitness Program For the Purpose of:: To facilitate caregiver knowledge, To improve self management, To prevent re-injury, To improve ability to perform tasks related to life management Therapeutic Exercise to Include: Strength training, Power training, Balance training, Coordination, Flexibilty training, Gait and locomotor training, Dynamic Lumbar Stabilization For the Purpose of:: To increase ROM, To improve nutrient delivery to tissue, To increase oxygenation perfusion, To improve muscle performance and motor function, To improve ability to perform ADL's, To increase tolerance to activity/condition/position, To decrease level of supervision to perform tasks, To improve ability of physical actions for home/community/work/leisure, To improve gait and locomotor functions, To improve health of tissue, To increase flexibility/ROM Please do not hesitate to contact me at [phone] by phone or if you have questions or concerns regarding this new plan of care! Sincerely, Wilmar Guillermo DPT
--- NOTE | 2021-11-09 09:26 | HP.PTREVAL ---
RADHA CURRY, It has been my pleasure to treat EVE ADAN over the last 24 visits for L sided brain mass. Please see the progress note below for an update on the physical therapy plan of care! Subjective: Pt. reports overall doing okay. He is to have a biopsy next week at lateral L temporal region. No pain noted. Objective/Function: TU min 37 sec with wide base quad cane. 30 sec sit to stand test: 9 with use of LUE. bed mobility: SBA for safety, he is able to get both legs up for sitting to supine (extended time required). Supine to sitting. Difficulty rolling onto L side min A and Norma for RLE. Stand pivot transverse with quad cane FLOYD, but extended time to complete. GAIT: Pt. ambulated 109feet with quad cane with SBA. He has marked methodical pattern. He has difficulty with R hip flexion and increased difficulty with R ankle DF as gait progresses. MMT: LLE: ankle- DF 28#, PF 55#, INV 31#, EVR 21#; knee: ext 49#, flexion 31#; hip: flexion 26#, abd 11#. RLE: ankle- Df 8#, PF 39#, INV 2#, EVR 1#; knee: ext 15#, flexion 6#; hip- flexion 8#, abd 4#. Jose Cruz continues to have difficulty with walking, with presence of reduced R ankle DF endurance noticable with walking. He has marked RLE weakness compared to L side. He requires increased time to complete tasks as well including bed mobility, txs and gait. He is having a brain biopsy next week with possible tumor removal pending results. He has continued difficulty with expressing his speech as well. He does have R shoulder subluxation, but does not like to use sling Plan Plan: I will continue to see him. Focus on functional mobility, R LE coordination with reciprocal pattern. Attempt reciprocal RLE movement of both ankle/knee/hip. Balance/Gait/Functional tests - Balance/Special Test Scores Lower Extremity Functional Score: 18 TUG Test Time Seconds: 41 Tug Test: >30sec.=impaired mobility 30 Second Chair Rise Test Seconds: 6 Goals Goal 1:: LTG: Pt. to be I with HEP for BLE strengthening. Goal Time Frame: 4-6 Weeks Goal Progress: Progressing Goal 2:: STG: Pt. to complete sit to stand and SPT CARROL with least restrictive device, SPC vs quad cane Goal Time Frame: 2 Weeks Goal Progress: Progressing Goal 3:: LTG: Pt. to ambulate 150' with least restrictive device CARROL allowing for increased safety in home. Goal Time Frame: 4-6 Weeks Goal Progress: Progressing Goal 4:: LTG: Pt. to complete 30 sec sit to stand rep test with 8 reps indicating increased functional strength. Goal Time Frame: 4-6 Weeks Goal Progress: Goal Met Goal 5:: LTG: Pt. to complete TUG with score of less than 30seconds indicating increased functional stability. Goal Time Frame: 4-6 Weeks Goal Progress: Not Progressing Anticipated Interventions Patient/Client Instruction: Educate patient on: Condition, Plan of Care, Risk Factors, Benefits of Fitness Program For the Purpose of:: To facilitate caregiver knowledge, To improve self management, To prevent re-injury, To improve ability to perform tasks related to life management Therapeutic Exercise to Include: Strength training, Power training, Balance training, Coordination, Flexibilty training, Gait and locomotor training, Dynamic Lumbar Stabilization For the Purpose of:: To increase ROM, To improve nutrient delivery to tissue, To increase oxygenation perfusion, To improve muscle performance and motor function, To improve ability to perform ADL's, To increase tolerance to activity/condition/position, To decrease level of supervision to perform tasks, To improve ability of physical actions for home/community/work/leisure, To improve gait and locomotor functions, To improve health of tissue, To increase flexibility/ROM Please do not hesitate to contact me at [phone] by phone or if you have questions or concerns regarding this new plan of care! Sincerely, Wilmar Guillermo DPT
== END 2021-11-06 19:00 | disposition home or self-care (01) ==
LOC: PT 14:00
PROVIDERS: PCP Family Medicine
DX: G93.89 Other specified disorders of brain (principal); Z98.890 Other specified postprocedural states
CPT/HCPCS: 36415; 80053; 85025; 92507; 96105; 97110; 97112; 97116; 97140; 97161; 97164; 97167; 97530; J7120

== ENCOUNTER → 2021-12-18 | Outpatient (CLI) | payer BC, SELFPAY ==
[2021-12-18 11:44] LABS: Absolute Lymphocyte Count 1.46 X10^3/uL (0.83-4.51); Absolute Neutrophil Count 7.6 X10^3/uL (2.0-7.7); Basophil# 0.07 X10^3/uL; Basophil% 0.7 % (0-1); Eosinophil# 0.13 X10^3/uL; Eosinophils% 1.3 % (0-5); Hematocrit 46.6 % (40-54); Hemoglobin 15.8 g/dL (13.0-16.5); Lymphocyte # 1.46 X10^3/ul (0.83-4.51); Lymphocyte % 14.3 % (19-41); Mean Corp Hgb Conc 33.9 g/dL (32-36); Mean Corpuscular Hgb 30.9 pg (27.0-32.0); Mean Platelet Vol. 8.7 fl (6.2-12.0); Monocyte# 0.74 X10^3/uL; Monocyte% 7.3 % (0-10); NRBC Flagged by Analyzer 0 % (0-5); Neutrophil # 7.61 X10^3/uL (2.7-7.7); Neutrophil % 74.7 % (47-70); Platelet Count 269 K/mm3 (150-450); RBC Distribution Width CV 13.7 % (11.6-14.6); RBC Distribution Width SD 46.5 fl (35.1-43.9); Red Blood Count 5.12 M/mm3 (4.6-6.2); White Blood Count 10.2 K/mm3 (4.4-11.0)
[2021-12-18 11:59] LABS: ALB/GLOB Ratio 0.9 RATIO (0.9-2.4); AST(SGOT) 15 U/L (15-37); Alanine Aminotransfer ALT/SGPT 31 U/L (16-61); Albumin, Serum 3.8 g/dL (3.2-5.0); Alkaline Phosphatase 82 U/L (45-117); Anion Gap 9 (5-15); BUN 16 mg/dL (7-18); BUN/Creat Ratio 12.8 RATIO (10-20); Calcium,Total 9.7 mg/dL (8.5-10.1); Chloride 104 mmol/L (98-107); Creatinine, Serum 1.25 mg/dL (0.70-1.30); EST Glomerular Filtration Rate 62 mL/min (>60); Est Glom Filt Rate - Afr Amer 75 mL/min (>60); Globulin 4.1 g/dL (2.2-4.2); Glucose 121 mg/dL (74-106); Potassium 3.3 mmol/L (3.5-5.1); Protein, Total 7.9 g/dL (6.4-8.2); Sodium Level 142 mmol/L (136-145)
== END | disposition home or self-care (01) ==
PROVIDERS: PCP Family Medicine
DX: C71.9 Malignant neoplasm of brain, unspecified (principal)
CPT/HCPCS: 36415; 80053; 85025

== ENCOUNTER 2022-02-19 15:00 | Outpatient (RCR) | payer BC, SELFPAY ==
--- NOTE | 2021-12-02 13:25 | HP.PTEVAL_ITS ---
Patient's Visit Information EVE ADAN is a 61 year old M referred to Physical Therapy by TERRY GARG with a diagnosis of glioblastoma, with R sided hemiparesis, and gait instability.. Date of Evaluation: 12/02/21 Physical Therapist: Wilmar Guillermo DPT - Visit Plan Frequency: 2-3x /Week Duration: 6 Weeks Plan: Start with functional mobility training focusing on safety and independence. Add in BLE strengthening, reciprocal motor control of RLE. Progres s functional endurance and balance training. - Subjective Pt. is here today for his initial evaluation with diagnosis of glioblastoma, with R sided hemiparesis, and gait instability. Pt. arrives today with spouse and daughter. Pt. just got home after being in Rehab unit in [place]. He had a tumor removed from the L side of brain. He was previously diagnosed with a tumor and had another removed recently. He was using a platform walker at home, but spouse reports that this has been difficult to use at home due to narrow spaces. He has been mostly using WC. He is also getting power WC, but is not supposed to be in for another few months. He requires help with bed mobility, txs, gait and all ADLs. Spouse is available for all activities and daughter is able to help o ut as well. They are hopeful to increase his general strength in order to get back more I mobility at home. - Objective POSTURE: Pt. has general slouched posture in sitting with R arm at side, IR rotated R shoulder, FH posture. STANCE POSTURE: Pt. is able to stand without AD with improved upright posture, but R arm hangs at side. Wide KRYSTAL noted. PALPATION: pt. had marked edema in BLEs, R distal LE worse 1+ pitting in calf. No calf pain bilaterally. ROM: Pt. has good ROM throughout BLEs, except tightness noted in B calves. NEURO: decreased sensation in RLE to light touch, decreased DTR bilaterally. MMT: LLE: ankle: DF 21.1#, PF 54.4#; knee: ext 54.5#, flexion 34.5#; hip: flexion 21.3#, abd 19.8#. RLE: ankle: DF: 1.1#; fPF 31.1#; knee: ext 7.1#; flexion 2.1#; hip: flexion 3.1#; abd 0#. 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 Instead he walked with quad cane with CGA. He was able to ambulate 13feet prior to reports of increased fatigue. He presents with decrased R foot clearance with limited R hip flexion, increased time to complete as well. No LOB noted. STAIRS: he was able to complete 3 steps with 1 HR with CGA/Norma, step to pattern with loading LLE only. TUsec with quad cane. bed mobility: mod A for BLEs for sitting to supine and mod A for LEs and trunk with supine to sitting. 30 sec sit to stand rep test: 5 with use of LUE. - Balance/Special Test Scores CATSIB Score (Max score 120 seconds): 88 Lower Extremity Functional Score: 9 TUG Test Time Seconds: 57 30 Second Chair Rise Test Seconds: 5 - Goals Goal 1:: LTG: Pt. to be I with HEP for LE strengthening and balance. Goal Time Frame: 4-6 Weeks Goal 2:: STG: Pt. to complete bed mobility with FLOYD allowing for increased ease of caregiver. Goal Time Frame: 2-4 Weeks Goal 3:: LTG: Pt. to complete 30 rep sit to stand test with score of 10 reps without use of UE indicating increased BLE functional strength. Goal Time Frame: 4-6 Weeks Goal 4:: LTG: Pt. to ambulate 100' with platform walker vs quad cane with SBA allowing for increased mobility in home. Goal Time Frame: 4-6 Weeks Goal 5:: STG: pt. to negotiate 3 steps with 1 HR with CGA of 1 allowing for safe entry/exit of home. Goal Time Frame: 2-4 Weeks Goal 6:: LTG: Pt. to complete TUG with time of less than 40sec indicating increased functional mobility and safety. Goal Time Frame: 4-6 Weeks - Rehabilitation Potential Physical Therapy Diagnosis: Pt. has signs and symptoms consistent with R sided hemiparesis, weakness, and gait instability secondary to glioblastoma. Pt. has marked R side weakness/hemiparesis which impacts in general mobility, gait and safety with functional mobility. Pt. would benefit from PT to address the above limitation allowing for increased safety and I at home. Rehabilitation Potential: Fair - Anticipated Interventions Patient/Client Instruction: Educate patient on: Condition, Plan of Care, Risk Factors, Benefits of Fitness Program For the Purpose of:: To improve decision making, To facilitate caregiver knowledge, To improve self management, To prevent re-injury, To improve ability to perform tasks related to life management Therapeutic Exercise to Include: Strength training, Endurance training, Balance training, Coordination, Body mechanics, Postural training, Gait and locomotor training, Active ROM For the Purpose of:: To improve nutrient delivery to tissue, To improve muscle performance and motor function, To improve gait and locomotor functions, To improve health of tissue, To decrease soft tissue restriction, To increase flexibility/ROM, To improve endurance, To improve balance, To improve safety with gait Thank you for the opportunity to evaluate your patient. For Medicare and Medicare HMO plans, please review the plan of care and approve it. It will need to be FAXED BACK to us at [phone] for Medicare purposes. For Medicare only, by signing this I certify the plan of care. Please let me know if there are questions or concerns regarding this plan of care. Physician Signature: Date:
--- NOTE | 2021-12-03 11:50 | HP.OTREVAL ---
TERRY GARG, It has been my pleasure to treat EVE ADAN over the last 18 visits for Brain tumor with right side weakness. Please see the progress note below for an update on the occupational therapy plan of care! Subjective: pt arrives for re-eval following 2 week rehab at [facility]- due to tumor removal- pt arrives from speech therapy today in WC. Pt. just got home after being in Rehab unit in [place]. He had a tumor removed from the L side of brain. He was previously diagnosed with a tumor and had another removed recently. He was using a platform walker at home- He has been mostly using WC vs ww He is also getting power WC, but is not supposed to be in for another few months. He requires help with bed mobility, txs, gait and all ADLs. Spouse is available for all activities and daughter is able to help out as well. They are hopeful to increase his general strength in order to get back more I mobility at home. Objective/Function: Pt arrives to OT following another sx and short stay at [facility]. Pt demo increase difficulty with word finding. pt does agree he is weaker and is having more difficulty with functional mobility and performance of his ADls. Family assisting with all tasks at this time. pt demo with trace of right shoulder flex/ext noted subluxation right shoulder and minimal amount of right elbow flex/ext- no. left filling layer up strength 65# right unable. left lateral pinch 16# right Unable. left tripod pinch 12# right unable. right shoulder demo min ROM ability. right shoulder elevation 9#. right biceps 5#. right triceps 7.9#. This is tested in peak force FIT mini for muscle test. pt demo light grasp release of right hand. can perform opposition to MF on right and WNL on left. pt demo full digit flexion and ext. pt demo with traces and min strength of right UE and would benefit from skilled OT services 2-3x week for next 8 weeks to increase pts strength of right UE for participation of self care. pt and family agree to POC. Plan Frequency: 2-3x /Week Duration: 2 Months Visits in this POC: 60 total for PT/[employer]/OT Plan: no movement of right shoulder passed 90* flex or abd at 80*. initiate AAROM and transition to AROM and strengthening as pt tolerates- left side has had a decline in strength as well so we can incorporate. Goals - Goals Patient Goals: Regain Mobility, Improve Fine Motor Skills, Use Hand/Wrist/Arm Normally Again, Be More Independent in ADLS Goal:: Pt. will improve filling layer up strength by 15# (from 5# to 20#) from for increasing independence with opening containers for meals by dc. Goal:: Pt. will increase RUE AROM from trace to 15 degree shoulder flexion to increase indep with UB dressing by dc. family will report pt can don pullover shirt at Mod I level by dc. Goal:: Pt. to verbalize awareness of sensation at level 3.22 on [place] monofilament assessment on R hand by dc. pt will demo understanding to utilize visual compensation around hot/cold or sharp objects by end of 3 rd session. Goal:: pt will demo understanding of using adaptive dressing pancho. to decrease need of assist by family ie, adaptive clothing, elastic pants etc. Goal:: Will provide family ed. on ergonomics for dressing, bathing, transfer to avoid injury to self or pt by d/c Anticipated Interventions Please do not hesitate to contact me at [phone] by phone or if you have questions or concerns regarding this new plan of care! Sincerely, Edilia Heard, OTR/L, CHT
--- NOTE | 2021-12-23 13:57 | HP.SP.REEV ---
History - History Date of Eval: 06/26/21 Smoking Status: Never smoker Hx Smoking: No - Pain Is pain an issue with your current prescribed condition?: No Patient Allergies - Allergies Allergies cinnamon Allergy (Mild, Verified 10/01/21 11:02) Hives Fish Containing Products Allergy (Mild, Verified 10/01/21 11:02) Hives Previous/Current Goals - Goals 1-5 Previous Goal #1: The pt will demonstrate and utilize speech intelligibility techniques (increased loudness, reduced rate of speech, exaggerated articulation, increased jaw ROM) 90% of the time during conversational speech independently across 3 measured sessions to facilitate increased expressive communication abilities in the home and social environments. Goal 1 Status: GOAL MET Previous Goal #2: Pt will complete basic to mod complex confrontation, convergent, and divergent naming tasks with 90% acc independently across 3 measured opportunities to improve word retrieval. Goal 2 Status: PROGRESSING: Pt completed confrontation naming task with 66% acc independently and benefited from mod phonemic cues (e.g., /r/ then /rect/ for rectangle) to improve acc to 91% acc. Pt completed reading phrase completion task from a field of 3 choices with 100% acc independently. Pt's reading skills significantly improved this date compared to at the beginning of therapy. Pt repeating individual words and simple sentences with 100% acc; however, when self-generating conversation Pt with empty speech and SEVERE word finding difficulties. Previous Goal #3: The Pt will demonstrate use of aphasia-wording finding strategies at least 90% of the time during known and unknown topics of conversational speech independently across 3 measured opportunities to facilitate increased expressive communication abilities in the home and social environments. Goal 3 Status: PROGRESSING: Pt participating in conversation re: what he had for lunch and where he went with 50% acc independently. Pt participated in automatic sequence of his name, birthday, 's name, and daughter's name with 75% acc. Pt participated in repetition of LAUREN with 25% acc and benefited from max verbal phonemic cue to improve acc to 75%. Have attempted to implement semantic feature analysis as well as melodic intonation therapy with Pt demonstrating difficulty with carry over outside of therapy. Subjective AAC - AAC Subjective: Pt participated in a consultation with Claudia reyes to determine if he would like to pursue a formal AAC evaluation for a high-tech speech generating device. A device would assist Pt in becoming an active participant in conversations socially and medically. This would also allow for him to communicate exactly what he is needing at home instead of his family having to offer choices, that may or may not be what he is wanting. Pt's formal AAC evaluation is scheduled for January 08, 2022. BDAE-3 - [facility] Diagnostic Aphasia Examination BDAE-3 Administered: Yes BDAE-3: The BDAE-3 assesses communication in the areas of: conversational and expository speech, auditory comprehension, oral expression, reading and writing. Date: 12/03/21 - Severity Level: 1 Level Detail: All communication through fragmentary expression; great need for inference, questioning, & guessing by listener. Range of information exchanged is limited, & listener carries the burden of communication. - Rating Scale Profile of speech character Articulation Agility: 3 Detail: Facility at phoneme and syllable level ranges from 1 being unable to form speech sounds to 7 being never impaired Phrase length: 1 Detail: Longest occasional uninterrupted word runs Grammatical form: 5 Detail: Variety of grammatical constructions; use of grammatical mophemes: 1=nosyntactic word groupings ranging to 7 being normal range of syntax; normal facility with grammatical words Melodic Line (Prosody): 3 Detail: 1=word b word or aprosodic speech ranging to 7 being normal speech bang Paraphasia in running speech: 1 Detail: 1 present in evrey utterance ranging to 7 s absent Word finding relative to fluency: 2 Detail: 1 is fluent but empty speech ranging to 7 as output primarily content words - Summary Profile Conversation/Speech Conversational/Expository Speech Percentile: 50 - Summary Profile Auditory Comprehension Basic word discrimination Percentile: 40 Commands Percentile: 70 Complex Ideational Material Percentile: 100 - Summary Profile Recitation Recitation automatized sequences Percentile: 100 - Summary Profile Repitition Words Percentile: 100 Sentences Percentile: 100 - Summary Profile Naming Responsive Naming Percentile: 100 Special Categories Percentile: 100 - Summary Profile Reading Matching cases and scripts: 100 Number matchin Picture - word matchin Oral word readin Oral sentence readin Oral sentence comprehension: 50 Sentences/Paragraph comprehension: 100 - BDAE-3 Comments Item Analysis Jose Cruz's strengths include receptive language and direct imitation of words and short phrases for expressive language. During conversational speech, Pt's expressive language often contains characteristics of non-descriptive words, neologisms, perseverations, and dysfluencies where he will begin a word and then abandon. Pt demonstrates some rote phrases such as I can't think of it. I forget what it is. Well that's about it. When asked to discuss his most recent trip to [place] with his family, Pt verbalizing, Oh shoot, we were just, uh, pr... and uh, um, my wrist is taking me and I can't remember everything. If I didn't have...it would be pre... Pt often demonstrating awareness of the broken, empty speech via reporting Oh I just forget. Plan - Plan Plan: Will recommend Pt for continued weekly outpatient speech therapy intervention address severe expressive aphasia. Pt would benefit from oral motor exercises, verbal and visual modeling, verbal/visual and tactile cuing, repeated practice, speech intelligibility strategies, circumlocution training, and immediate feedback to improve articulation and coordination. Without skilled intervention Pt is at risk for difficulty communicating basic, medical, emergent, social wants & needs, and interacting with family/friends at home, during social interactions, and at doctor's appointments. Will also recommend Pt for participation in formal AAC evaluation to acquire a speech-generating device. - Recommendations Treatment Warranted: Yes Treatment Warranted: Receptive/ Expressive Language, Other: Comment: AAC - Progress Prognosis: Good - Frequency Frequency: 1-2x /Week Duration: 6 Months - Patient/Family Goal Patient/Family Goal: Initiate use of an AAC device; increase independence as able - Goals that are Established Determination:: Goals will be added/modified as deemed necessary and appropriate. Therapy will be discontinued when results of re-evaluation indicate therapy is no longer needed or lack of progress has been documented. - Goal #1-5 Goal #1: Jose Cruz will complete basic to mod complex confrontation, convergent, divergent naming, and phrase completion tasks with 70% acc independently across 3 measured opportunities to improve word retrieval. Goal #2: Jose Cruz will demonstrate use of aphasia-wording finding strategies at least 80% of the time during known and unknown topics of conversational speech independently across 3 measured opportunities to facilitate increased expressive communication abilities in the home and social environments. Goal #3: Jose Cruz will orally describe visual scenes using 4 details specific to the picture given frequent moderate verbal and phonemic cues. Education - Patient has Indicated that the Following Identified Educational Needs: Hearing/Vision/Speech Impaired
--- NOTE | 2022-02-10 10:52 | HP.PTREVAL_ITS ---
TERRY GARG, It has been my pleasure to treat EVE ADAN over the last 3 visits for glioblastoma, with R sided hemiparesis, and gait instability.. Please see the progress note below for an update on the physical therapy plan of care! Subjective: Pt. arrives today coming back from having a hiatus with increased mediational cancer treatments. Pt's spouse reports he is having more trouble with walking and getting around now, but has started more dex and is expected to increase his activity. Pt. reports no pain today, and arrives in wheel chair. Objective/Function: MMT: pt. has 4+/5 strength in LLE except 4/5 hip flexion and 4-/5 abduction. RLE: ankle PF 3/5, DF 1/5; knee: ext 3-/5, flexion 2/5; hip: flexion 2/5, ext 3/5, abd 3-/5. Sit to stand: Pt. is able to complete with CGA, but requires extended time to complete and needs some assistance to get LEs underneath him and to increase Wt. shift. anteriorly to increase stability. He was able to complete with quad cane. stand pivot transfer with quad cane. He was able to maintain good stability in stance, but did require modA to advance RLE to complete transfer. GAIT: pt. was able to ambulate 12' with quad cane. He had good stability, but had a lot of difficulty advancing his RLE. He did better when I put a pillow case around his foot and was able to slide. He has declined since last time I saw him, but was not able to do much with his new medical interventions. Talking with spouse she would like him to be able to get around better, walk between rooms and transfer with increased safety/ease. 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 Balance/Gait/Functional tests - Balance/Special Test Scores CATSIB Score (Max score 120 seconds): 88 Lower Extremity Functional Score: 9 TUG Test Time Seconds: 57 Tug Test: >30sec.=impaired mobility 30 Second Chair Rise Test Seconds: 5 Goals Goal 1:: LTG: Pt. to be I with HEP for LE strengthening and balance. Goal Time Frame: 4-6 Weeks Goal Progress: Progressing Goal 2:: STG: Pt. to complete bed mobility with FLOYD allowing for increased ease of caregiver. Goal Time Frame: 2-4 Weeks Goal Progress: Progressing Goal 3:: LTG: Pt. to complete 30 rep sit to stand test with score of 10 reps without use of UE indicating increased BLE functional strength. Goal Time Frame: 4-6 Weeks Goal 4:: LTG: Pt. to ambulate 100' with platform walker vs quad cane with SBA allowing for increased mobility in home. Goal Time Frame: 4-6 Weeks Goal Progress: Not Progressing Goal 5:: STG: pt. to negotiate 3 steps with 1 HR with CGA of 1 allowing for safe entry/exit of home. Goal Time Frame: 2-4 Weeks Goal Progress: Progressing Goal 6:: LTG: Pt. to complete TUG with time of less than 40sec indicating increased functional mobility and safety. Goal Time Frame: 4-6 Weeks Goal Progress: Progressing Anticipated Interventions Patient/Client Instruction: Educate patient on: Condition, Plan of Care, Risk Factors, Benefits of Fitness Program For the Purpose of:: To improve decision making, To facilitate caregiver knowledge, To improve self management, To prevent re-injury, To improve ability to perform tasks related to life management Therapeutic Exercise to Include: Strength training, Endurance training, Balance training, Coordination, Body mechanics, Postural training, Gait and locomotor training, Active ROM For the Purpose of:: To improve nutrient delivery to tissue, To improve muscle performance and motor function, To improve gait and locomotor functions, To improve health of tissue, To decrease soft tissue restriction, To increase flexibility/ROM, To improve endurance, To improve balance, To improve safety with gait Please do not hesitate to contact me at [phone] by phone or if you have questions or concerns regarding this new plan of care! Sincerely, Wilmar Guillerom DPT
--- NOTE | 2022-04-22 14:05 | HP.OT.NRP ---
EVE ADAN was seen in my office for initial evaluation on . The following Plan of Care was established for this patient: Initial Frequency: 2-3x /Week Initial Duration: 2 Months Plan: no movement of right shoulder passed 90* flex or abd at 80*. initiate AAROM and transition to AROM and strengthening as pt tolerates- left side has had a decline in strength as well so we can incorporate. This patient was last seen in our office 02/18/22. Pertinent comments regarding their Occupational therapy will appear below: pt was seen for 20. At this time no further apts. have been scheduled and due to time lapse of greater than 30 days of services pt is d/c. At this point I will be discontinuing this patient from occupational therapy. I would be happy to see this patient again in the future if found appropriate by the physician. Thank you! Edilia Heard, OTR/L, CHT
--- NOTE | 2022-04-23 09:56 | HP.SP.DC ---
ST Discharge Summary - Discharged: Discharge: URIEL ADAN was seen for initial speech/language/cognitive evaluation at [facility] on 06/26/21 secondary to dx of Brain Mass (G93.89); [place] [facility] with Post-Operative Status (Z98.890). Pt attended 27 sessions from initial evaluation targeting total communication, introduction to low-tech and high-tech augmentative alternative communication, answering y/n questions, following 1-2 step directions, and education re: semantic feature analysis. Pt making minimal overall progress throughout the course of intervention given progression of brain mass severity. Pt being discharged from speech therapy caseload on this date, 04/23/2022, secondary to additional therapy sessions not being scheduled after last session. Thank you for allowing me to participate the care of your Pt. Will reevaluate at Pt?s request following script from physician.
== END 2022-02-19 19:00 | disposition home or self-care (01) ==
LOC: PT 15:00
PROVIDERS: PCP Family Medicine
DX: C71.9 Malignant neoplasm of brain, unspecified (principal); G81.91 Hemiplegia, unspecified affecting right dominant side; R26.81 Unsteadiness on feet; R47.01 Aphasia
CPT/HCPCS: 92507; 97110; 97161; 97164; 97168; 97530